=== PATIENT | female | born 1990 | race African-American/Black ===

== ENCOUNTER 2016-05-25 08:57 | Emergency (ER) | payer OTHER ==
[2016-05-25 09:10] VITALS: BP 123/64
== END 2016-05-25 15:02 | disposition left against medical advice (07) ==
LOC: ED 08:57
DX: R05 Cough (principal); Z53.21 Procedure and treatment not carried out due to patient leaving prior to being seen by health care provider

== ENCOUNTER 2016-05-25 11:38 | Emergency (ER) | payer OTHER ==
[2016-05-25 12:43] VITALS: BP 127/72
[2016-05-25] MEDS ORDERED: Acetaminophen TAB* 325 MG PO ONE (12:54)
--- NOTE | 2016-05-25 12:54 | UC ---
Throat Pain/Nasal Ruddy HPI - HPI Summary HPI Summary: 2 days of cough, fever, sore throat, body aches - History of Current Complaint Chief Complaint: UCRespiratory Stated Complaint: FLU LIKE SYMPTOMS Time Seen by Provider: 05/25/16 12:45 Hx Obtained From: Patient Hx Last Menstrual Period: 04/17, PT TRYING ?: No Onset/Duration: Sudden Onset, Lasting Days - 2, Still Present Severity: Moderate Pain Intensity: 5 Pain Scale Used: 0-10 Numeric Cough: Nonproductive Associated Signs & Symptoms: Positive: Sinus Discomfort, Nasal Discharge, Fever - Allergies/Home Medications Allergies/Adverse Reactions: Allergies Allergy/AdvReac Type Severity Reaction Status Date / Time Pollen Extract Allergy Intermediate Hives Verified 05/25/16 09:04 Sulfa Antibiotics Allergy Unknown Verified 05/25/16 09:04 Reaction Details Home Medications: Home Medications [id number]-[id number] W/ APAP [Tylenol Cold & Flu Severe 3-35-225-325 mg] 1 tab PO 05/25/16 [History] PMH/Surg Hx/FS Hx/Imm Hx Previously Healthy: No Endocrine History Of: Denies: Diabetes, Thyroid Disease Cardiovascular History Of: Denies: Cardiac Disorders, Hypertension Respiratory History Of: Denies: COPD, Asthma GI/ History Of: Denies: Ulcer Neurological History Of: Reports: Seizures - LAST ONE 2 YEARS AGO - Surgical History Surgical History: Yes Surgery Procedure, Year, and Place[place] 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 Lives: With Family Alcohol Use: None Substance Use Type: None Smoking Status (MU): Former Smoker Type: Cigarettes Amount Used/How Often: 3 cig/day Length of Time of Smoking/Using Tobacco: 6 years Have You Smoked in the Last Year: Yes - past week not smoking Household Exposure Type: Cigarettes Review of Systems Constitutional: Fever, Chills, Fatigue Skin: Negative Eyes: Negative ENT: Sore Throat, Nasal Discharge Respiratory: Cough Cardiovascular: Negative Gastrointestinal: Negative Genitourinary: Negative Motor: Negative Neurovascular: Negative Musculoskeletal: Arthralgia, Myalgia Neurological: Headache Psychological: Negative All Other Systems Reviewed And Are Negative: Yes Physical Exam Triage Information Reviewed: Yes Appearance: Well-Nourished, Ill-Appearing - moderate, Pain Distress - mild Vital Signs: Initial Vital Signs Temp 99.6 F 05/25/16 12:39 Pulse 89 05/25/16 12:39 Resp 18 05/25/16 12:39 BP 127/72 05/25/16 12:39 Pulse Ox 99 05/25/16 12:39 Vital Signs Reviewed: Yes Eye Exam: Normal Eyes: Positive: Conjunctiva Clear ENT Exam: Other ENT: Positive: Hearing grossly normal, Pharynx normal, Nasal congestion, Nasal drainage, TMs normal. Negative: Tonsillar swelling, Tonsillar exudate, Trismus , Muffled/hoarse voice Dental Exam: Normal Neck exam: Normal Neck: Positive: Supple, Nontender, No Lymphadenopathy Respiratory Exam: Normal Respiratory: Positive: Chest non-tender, Lungs clear, Normal breath sounds, No respiratory distress, No accessory muscle use Cardiovascular Exam: Normal Cardiovascular: Positive: RRR, No Murmur, Pulses Normal, Brisk Capillary Refill Musculoskeletal Exam: Normal Musculoskeletal: Positive: Strength Intact, ROM Intact, No Edema Neurological Exam: Normal Neurological: Positive: Alert, Muscle Tone Normal Psychological Exam: Normal Skin Exam: Normal Diagnostics - Laboratory Diagnostic Studies Completed/Ordered: Influenza A (+) RST (-) Throat Pain/Nasal Course/Dx - Course Assessment/Plan: tamiflu, ibuprofen, tylenol, rest, increase fluids, follow with pcp prn - Differential Dx/Diagnosis Differential Diagnosis/HQI/PQRI: Influenza, Laryngitis, Pharyngitis, Sinusitis, URI Provider Diagnoses: Influenza A Discharge - Discharge Plan Condition: Stable Disposition: HOME Prescriptions: Albuterol HFA INHALER* [Ventolin HFA Inhaler*] 2 puff INH Q4H PRN #1 mdi PRN Reason: cough/wheeze Oseltamivir CAP* [Tamiflu CAP*] 75 mg PO BID #10 cap Patient Education Materials: How to Use a Metered-Dose Inhaler (ED), Influenza (ED) Forms: *Work Release Referrals: Nabila Sage MD [Primary Care Provider] - 5 Days
== END 2016-05-25 13:32 | disposition home or self-care (01) ==
LOC: UCEAST 11:38
DX: J09.X2 Influenza due to identified novel influenza A virus with other respiratory manifestations (principal); Z32.02 Encounter for pregnancy test, result negative; Z88.2 Allergy status to sulfonamides; Z87.891 Personal history of nicotine dependence
CPT/HCPCS: 81002; 81025; 87502; 87651; 99212; A9270-GY; G0463

== ENCOUNTER 2016-07-31 16:12 | Emergency (ER) | payer OTHER ==
[2016-07-31 16:58] VITALS: BP 125/67
--- NOTE | 2016-08-02 16:21 | UC ---
Jeni Frazier Michael, scribed for Marsha Ott MD on 07/31/16 at 1728 . - HPI Summary HPI Summary: 25 y/o female comes to [facility] after taking a home test was positive one and a half weeks ago. The pt is A1. She reports that she had had dysuria and increased frequency that started 3 days ago. She also noticed vaginal bleeding described as spotting that occurred today. The pt c/o n/v, HAGER, and intermittent episodes of cramping RLQ pain. The pt smokes 1-2 cigarettes per day. - History of Current Complaint Chief Complaint: UC general Stated Complaint: SPOTTING (PREG) Time Seen by Provider: 07/31/16 17:13 Hx Obtained From: Patient, Medical Records Chief Complaint: Vaginal Bleeding - spotting Onset/Duration: Started Hours Ago Timing: Intermittent Severity: Mild Current Severity: Mild Pain Intensity: 0 - out of 10 pain assessment Character: Cramping Aggravating Factors: Nothing Alleviating Factors: Nothing Associated Signs and Symptoms: Positive: Nausea, Urinary Symptoms - dysuria and frequency, Vaginal Bleeding or Discharge, Vomiting, Other: - HAGER and RLQ pain - Assessment Hx Now: Yes Hx Hysterectomy: No - Allergies/Home Medications Allergies/Adverse Reactions: Allergies Allergy/AdvReac Type Severity Reaction Status Date / Time Pollen Extract Allergy Intermediate Hives Verified 05/25/16 09:04 Sulfa Antibiotics Allergy Unknown Verified 05/25/16 09:04 Reaction Details PMH/Surg Hx/FS Hx/Imm Hx Endocrine/Hematology History: Reports: Hx Anemia - FOR MANY YEARS Denies: Hx Diabetes, Hx Thyroid Disease Cardiovascular History: Denies: Hx Hypertension, Other Cardiovascular Problems/Disorders Respiratory History: Denies: Hx Asthma, Hx Chronic Obstructive Pulmonary Disease (COPD), Other Respiratory Problems/Disorders GI History: Denies: Hx Ulcer, Other GI Disorders Musculoskeletal History: Denies: Other Musculoskeletal History Sensory History: Denies: Hx Contacts or Glasses, Hx Hearing Aid Opthamlomology History: Denies: Hx Contacts or Glasses Neurological History: Reports: Hx Seizures - LAST ONE 2 YEARS AGO - Surgical History Surgery Procedure, Year, and Place: C SECTION, 2012, [facility] [place] Hx Anesthesia Reactions: No Infectious Disease History: No Infectious Disease History: Denies: Hx Clostridium Difficile, Hx Hepatitis, Hx Human Immunodeficiency Virus (HIV), Hx of Known/Suspected MRSA, Hx Shingles, Hx Tuberculosis, Hx Known/ Suspected VRE, Hx Known/Suspected VRSA, History Other Infectious Disease, Traveled Outside the [place] in Last 30 Days - Family History Known Family History: Positive: Diabetes - father Negative: Cardiac Disease, Hypertension - Social History Occupation: Student Lives: With Family Alcohol Use: None Substance Use Type: Reports: Marijuana Smoking Status (MU): Light Every Day Tobacco Smoker Type: Cigarettes Amount Used/How Often: 3 cig/day Length of Time of Smoking/Using Tobacco: 6 years Have You Smoked in the Last Year: Yes - past week not smoking Review of Systems Gastrointestinal: Abdominal Pain, Vomiting, Other - nausea Genitourinary: Dysuria, Frequency, Other - vaginal bleeding Neurological: Headache All Other Systems Reviewed And Are Negative: Yes Physical Exam - Physical Exam Triage Information Reviewed: Yes Vital Signs Reviewed: Yes Appearance: Positive: Well-Nourished Skin: Positive: Other - normal-no visibility of rash Eyes: Positive: Normal ENT: Positive: Normal ENT inspection Neck: Positive: Other: - normal: no adenopathy appreciated Respiratory/Lung Sounds: Positive: Clear to Auscultation, Breath Sounds Present , Other - no dyspnea. no tachypnea. normal respiratory rate. chest non-tender Cardiovascular: Positive: RRR, Murmur - 1 out of 6 systolic murmur Abdomen Description: Positive: Other: - right lower pelvis tender with no rebound and guarding with no focal mass appreciated. Bowel Sounds: Positive: Present Musculoskeletal: Positive: Normal, Strength/ROM Intact Neurological: Positive: Normal - nonfocal. grossly intact. Psychiatric: Positive: Affect/Mood Appropriate - conversing easily Course/Dx - Course Course Of Treatment: Waiting for Urine results. 1809-discussed pt transfer to [facility] [place] with Germaine Martino. Patient offered and encouraged EMS. Patient declines. POC Urine Ketones: Trace High. Positive . Cx sent. - Diagnoses Provider Diagnoses: Vaginal bleeding in Discharge - Discharge Plan Condition: Stable Disposition: AGAINST MEDICAL ADVICE Referrals: Nabila Sage MD [Primary Care Provider] - The documentation as recorded by the Jeni jones Michael accurately reflects the service I personally performed and the decisions made by me, Marsha Ott MD.
== END 2016-07-31 18:10 | disposition left against medical advice (07) ==
LOC: UCEAST 16:12
DX: O20.9 Hemorrhage in early pregnancy, unspecified (principal); D64.9 Anemia, unspecified; R56.9 Unspecified convulsions; F12.90 Cannabis use, unspecified, uncomplicated; F17.210 Nicotine dependence, cigarettes, uncomplicated; Z88.2 Allergy status to sulfonamides; Z3A.00 Weeks of gestation of pregnancy not specified
CPT/HCPCS: 81003; 84702; 87086; 99212; G0463

== ENCOUNTER 2016-07-31 19:23 | Emergency (ER) | payer OTHER ==
[2016-07-31 19:35] VITALS: BP 112/79
--- NOTE | 2016-07-31 22:02 | RAD ---
HISTORY: Vaginal bleeding, gestational age by dates is unknown COMPARISONS: None relevant TECHNIQUE: Multiple transverse and longitudinal ultrasound images were obtained of the pelvis using grayscale and color Doppler imaging using the endovaginal transducer. FINDINGS: UTERUS: The uterus is normal in shape, size, contour, and echotexture. GESTATION: A gestational sac is identified without pole.. The mean sac diameter measures 0.55 cm for a gestational age of 5 weeks and 7 days. The DONYA is April 01, 2017. cardiac motion is not detected. Gross movement is not identified. A yolk sac is identified. The amniotic fluid is qualitatively normal. There are no retroplacental fluid collections. CUL-DE-SAC: There is no free fluid within the cul-de-sac. RIGHT OVARY: The right ovary measures 3.7 x 1.9 x 2.2 cm. LEFT OVARY: The left ovary measures 3.3 x 2.5 x 3.8 cm. BLADDER: The bladder is not well visualized. IMPRESSION: SINGLE LIVE INTRAUTERINE GESTATION AT 5 WEEKS AND 7 DAYS BY MEAN SAC DIAMETER.
--- NOTE | 2016-08-01 07:16 | ED ---
- HPI Summary HPI Summary: Patient , 5 weeks confirmed by 3 urine preg tests presents to ED after vaginal spotting this morning. She was seen at who sent her here for an US. She denies current bleeding. Previous miscarriage history causes her to be obviously nervous about bleeding and would like assurance. She is not experiencing any pain. Denies health problems and takes no medications. She is not established with an OBGYN yet. Denies other vaginal discharge, urinary sxs, back pain, HAGER, neck pain or fever. - History of Current Complaint Chief Complaint: EDVaginalBleeding Stated Complaint: VAG BLEEDING-EAST XFER Time Seen by Provider: 07/31/16 20:33 Hx Obtained From: Patient Chief Complaint: Concern for Embryonic Dem, Concern for Demise, Vaginal Bleeding Onset/Duration: Started Hours Ago Timing: Constant Severity: Mild Current Severity: None Pain Intensity: 0 Associated Signs and Symptoms: Positive: Negative, Vaginal Bleeding or Discharge - Assessment Hx Now: Yes History of Ectopic : No Hx Pelvic Inflammatory Disease: No Vaginal Bleeding Amount: Spotting Contraction Intensity: No Contractions Contraction Pattern: No Contractions Hx Hysterectomy: No History of STI/STD: No - Risk Factors Ectopic Risk Factor: Negative Ovarian Torsion Risk Factor: Reproductive Age - Allergies/Home Medications Allergies/Adverse Reactions: Allergies Allergy/AdvReac Type Severity Reaction Status Date / Time Pollen Extract Allergy Intermediate Hives Verified 05/25/16 09:04 Sulfa Antibiotics Allergy Unknown Verified 05/25/16 09:04 Reaction Details PMH/Surg Hx/FS Hx/Imm Hx Previously Healthy: Yes Endocrine/Hematology History: Reports: Hx Anemia - FOR MANY YEARS Denies: Hx Diabetes, Hx Thyroid Disease Cardiovascular History: Denies: Hx Hypertension, Other Cardiovascular Problems/Disorders Respiratory History: Denies: Hx Asthma, Hx Chronic Obstructive Pulmonary Disease (COPD), Other Respiratory Problems/Disorders GI History: Denies: Hx Ulcer, Other GI Disorders Musculoskeletal History: Denies: Other Musculoskeletal History Sensory History: Denies: Hx Contacts or Glasses, Hx Hearing Aid Opthamlomology History: Denies: Hx Contacts or Glasses Neurological History: Reports: Hx Seizures - LAST ONE 2 YEARS AGO - Surgical History Surgery Procedure, Year, and Place: C SECTION, 2012, [facility] – [place]; D[place]C Hx Anesthesia Reactions: No Infectious Disease History: No Infectious Disease History: Denies: Hx Clostridium Difficile, Hx Hepatitis, Hx Human Immunodeficiency Virus (HIV), Hx of Known/Suspected MRSA, Hx Shingles, Hx Tuberculosis, Hx Known/ Suspected VRE, Hx Known/Suspected VRSA, History Other Infectious Disease, Traveled Outside the [place] in Last 30 Days - Family History Known Family History: Positive: None, Diabetes - father Negative: Cardiac Disease, Hypertension - Social History Occupation: Unemployed Lives: With Family Alcohol Use: None Hx Substance Use: Yes Substance Use Type: Reports: Marijuana Hx Tobacco Use: Yes Smoking Status (MU): Light Every Day Tobacco Smoker Type: Cigarettes Amount Used/How Often: 3 cig/day Length of Time of Smoking/Using Tobacco: 6 years Have You Smoked in the Last Year: Yes - past week not smoking Review of Systems Constitutional: Negative Cardiovascular: Negative Respiratory: Negative Gastrointestinal: Negative Positive: no symptoms reported, see HPI Musculoskeletal: Negative Neurological: Negative Psychological: Normal All Other Systems Reviewed And Are Negative: Yes Physical Exam - Physical Exam Triage Information Reviewed: Yes Vital Signs Reviewed: Yes Appearance: Positive: Well-Appearing, Well-Nourished Skin: Positive: Warm, Skin Color Reflects Adequate Perfusion Eyes: Positive: ALISON, Conjunctiva Clear Neck: Positive: Supple, No Lymphadenopathy Respiratory/Lung Sounds: Positive: Clear to Auscultation, Breath Sounds Present Cardiovascular: Positive: Normal, RRR, Pulses are Symmetrical in both Upper and Lower Extremities Abdomen Description: Positive: Nontender, Soft Musculoskeletal: Positive: Normal, Strength/ROM Intact Neurological: Positive: Normal, Sensory/Motor Intact, Speech Normal Psychiatric: Positive: Normal Diagnostics - Vital Signs Vital Signs Temp Pulse Resp BP Pulse Ox 07/31/16 19:31 98.2 F 88 15 112/79 100 - Laboratory Lab Statement: Any lab studies that have been ordered have been reviewed, and results considered in the medical decision making process. Course/Dx - Course Course Of Treatment: Transvaginal US showed IUP at 6 weeks. Patient disharged home with reassurance and follow up with OB clinic next week. Ok for discharge. - Differential Diagnosis/HQI/PQRI: Incomplete , Missed , Spontaneous , Threatened , Vaginal Bleeding - Diagnoses Provider Diagnoses: Vaginal bleeding in Discharge - Discharge Plan Condition: Stable Disposition: HOME Patient Education Materials: First Trimester Vaginal Bleed (ED), First Trimester (ED) Referrals: Nabila Sage MD [Primary Care Provider] - Additional Instructions: Follow up with OBGYN You are 5 weeks and 7 days today. If bleeding through a pad every hours, come back to ED.
== END 2016-07-31 22:30 | disposition home or self-care (01) ==
LOC: ED 19:23
DX: O46.91 Antepartum hemorrhage, unspecified, first trimester (principal); Z3A.01 Less than 8 weeks gestation of pregnancy
CPT/HCPCS: 76817; 99282

== ENCOUNTER 2017-03-26 07:45 | Inpatient (IN) | payer OTHER ==
[~2017-03-26 07:45] MED LIST: Sodium Citrate/Citric Acid* 15 ML UDC ONE; Sodium Citrate/Citric Acid* 15 ML UDC PO ONE; ceFOXitin 2 GM IVPREMIX* 2 GM/50 ML BAG ONE
[2017-03-26] MEDS ORDERED: Buffered Lidocaine 0.9% SYRIN* 5 ML/SYR SYRINGE INTRADERM ONE (07:50)
[2017-03-26] MEDS ORDERED: Bupivacaine 0.5% SDV PF* 30 ML VIAL ONE (09:23)
[2017-03-26] MEDS ORDERED: OXYTOCIN* 10 UNITS/ML 1 ML VIAL ONE (09:23)
[2017-03-26] MEDS ORDERED: Morphine PF AMP (0.5MG/ML)* 5 MG/10 ML AMP ONE ×2 (09:36)
[2017-03-26] MEDS ORDERED: Dibucaine 1% 28.35 GM TUBE PR PRN (09:36)
[2017-03-26] MEDS ORDERED: Witch Hazel PAD* JAR TOPICAL PRN (09:36)
[2017-03-26] MEDS: Ketorolac INJ* 30 MG/ML 1 ML VIAL IV SCH ×3 (10:30→23:31)
[2017-03-26] MEDS ORDERED: fentaNYL* 50 MCG/ML 2 ML VIAL (100 MCG VIAL) IV PRN (10:32)
[2017-03-26] MEDS ORDERED: PROCHLORPERAZINE INJ 5 MG/ML 2 ML VIAL IV PRN (10:33)
[2017-03-26] MEDS ORDERED: Naloxone* 0.4 MG/ML 1 ML VIAL IV PRN (10:33)
[2017-03-26] MEDS ORDERED: Nalbuphine* 20 MG/ML 1 ML VIAL IV PRN ×2 (10:33)
[2017-03-26] MEDS ORDERED: Scopolamine PATCH Remove* 1 NOTE MISC PATCH OFF PRN (10:33)
[2017-03-26] MEDS ORDERED: DiMENhydriNATE IV* 50 MG/ML VIAL IV PUSH PRN (10:33)
[2017-03-26] MEDS ORDERED: HYDROcodone/ACETAMIN 5-325 MG* 1 TAB PO PRN (10:33)
[2017-03-26] MEDS ORDERED: diPHENhydraMINE IV* 50 MG/ML 1 ml VIAL (BENADRYL) IV PRN (10:33)
[2017-03-26] MEDS ORDERED: Ondansetron INJ* 2 MG/ML VIAL IV PRN (10:33)
[2017-03-26] MEDS ORDERED: Scopolamine 1.5 mg* PATCH TRANSDERM PRN (10:33)
[2017-03-26] MEDS ORDERED: Ketorolac INJ* 30 MG/ML 1 ML VIAL ONE (10:40)
[2017-03-26] MEDS: Acetaminophen TAB* 325 MG PO SCH ×4 (11:18→23:30)
[2017-03-26] MEDS: Simethicone TAB* 80 MG TAB.CHEW PO SCH ×3 (13:45→20:08)
--- NOTE | 2017-03-26 13:47 | OP ---
DATE OF OPERATION: 03/26/17 - ROOM #[id number] DATE OF : 1990 SURGEON: Umu Williamson MD MUSIC PUBLISHER: Linwood Long CNM. ANESTHESIOLOGIST: Dr. Mckinney. ANESTHESIA: Spinal. PRE-OP DIAGNOSIS: 39 plus 1 week gestation with history of previous . POST-OP DIAGNOSIS: 39 plus 1 week gestation with history of previous . OPERATIVE PROCEDURE: Repeat low transverse section. ESTIMATED BLOOD LOSS: 700 cc. URINE OUTPUT: 300 cc. IV FLUIDS: 2300 cc lactated Ringers. MATERIAL TO LAB: Cord blood. INDICATIONS: This patient was a 26-year-old 3 para 1 who presented today for a 39 plus 1 week gestation for her scheduled repeat section. She declined a trial of labor. She was extensively counseled and consent was signed. FINDINGS: Normal appearing uterus, fallopian tubes and ovaries. Modest amount of adhesions, especially between the skin and fascia. Delivery is productive of a 6 pound 10 ounce male infant with Apgars of 9 and 9. Time of delivery was 1020. COMPLICATIONS: None. DESCRIPTION OF PROCEDURE: The risks, benefits, and alternatives were described to the patient, and informed consent was obtained. The patient was taken to the operating room with IV running, where spinal anesthesia was induced and found to be adequate. The patient was prepped and draped in normal sterile fashion in the dorsal supine position with a leftward tilt. A Pfannenstiel skin incision was made with a scalpel through the patient's previous incision. This was carried down to the underlying fascia using the scalpel. The fascia was scored in the midline, and the incision was extended using Herbert scissors. The fascia was dissected off the underlying rectus muscles using blunt and sharp dissection. The rectus muscles were in the midline using dissection with a Neva clamp. The peritoneum was then entered bluntly. A bladder blade was placed. A bladder flap was created sharply using Metzenbaum scissors. A low transverse uterine incision was then made with the scalpel. This was carried down to the amniotic membranes. The membranes were then ruptured, productive of clear fluid. The uterine incision was extended using blunt traction. The head was elevated to the level of the incision, and, with fundal pressure, the head delivered without difficulty. The shoulders then were also both delivered and the body followed. The had excellent tone and cried immediately on delivery. The cord was doubly clamped and cut. The infant was then handed to the awaiting manufacturing teacher. Cord blood was collected. The placenta was delivered with manual extraction. The uterus was then exteriorized and cleared of all clots and debris. The uterine incision was then reapproximated using 0 Polysorb in a running-locked fashion. A second layer of imbricating 0 Polysorb sutures was then also placed for good hemostasis. The posterior cul-de-sac was irrigated with saline. The uterus was then returned to the abdomen. The incision was reinspected and still noted to be hemostatic. The peritoneum was closed with 2-0 chromic in a running fashion. The fascia was closed with 0 Polysorb in a running fashion. The subcutaneous tissues were copiously irrigated and made hemostatic using the Bovie. The subcutaneous tissues were then reapproximated using 2-0 chromic in interrupted sutures. The skin was then closed with . A sterile bandage was then placed over the incision. The patient tolerated the procedure well. Sponge, lap, and needle counts were correct x 2. [id number]/[facility] #: [id number] [facility]OLDW[facility] SPECIALTY HOSPITALDianne
[2017-03-26] MEDS: Docusate CAP* 100 MG PO SCH ×2 (14:27→20:08)
[2017-03-27] MEDS: Ketorolac INJ* 30 MG/ML 1 ML VIAL IV SCH (04:28)
[2017-03-27 08:38] LABS: Hematocrit 31 % (35-47); Hemoglobin 10.8 g/dl (12.0-16.0); Mean Corpuscular HGB Conc 35 g/dl (31-36); Mean Corpuscular Hemoglobin 31 pg (27-31); Mean Corpuscular Volume 90 fL (80-97); Mean Platelet Volume 8 um3 (7.4-10.4); Red Blood Count 3.49 10^6/ul (4.0-5.4); Red Cell Distribution Width 14 % (10.5-15); White Blood Count 12.4 10^3/ul (3.5-10.8)
[2017-03-27] MEDS: Ferrous Gluconate TAB* 324 MG TAB PO SCH (09:00)
[2017-03-27] MEDS: oxyCODONE/Acetamin 5/325 MG* TAB PO PRN ×4 (09:06→23:26)
[2017-03-27] MEDS: Simethicone TAB* 80 MG TAB.CHEW PO SCH ×3 (09:07→20:25)
[2017-03-27] MEDS: Docusate CAP* 100 MG PO SCH ×3 (09:07→20:25)
[2017-03-27] MEDS: Ibuprofen TAB* 600 MG PO SCH ×2 (13:13→19:10)
[2017-03-28] MEDS: Ibuprofen TAB* 600 MG PO SCH ×6 (01:18→23:21)
[2017-03-28] MEDS: oxyCODONE/Acetamin 5/325 MG* TAB PO PRN ×5 (03:37→21:13)
[2017-03-28] MEDS: Ferrous Gluconate TAB* 324 MG TAB PO SCH (05:15)
[2017-03-28] MEDS: Docusate CAP* 100 MG PO SCH ×3 (08:19→21:14)
[2017-03-28] MEDS: Simethicone TAB* 80 MG TAB.CHEW PO SCH ×4 (08:20→21:14)
[2017-03-29] MEDS: oxyCODONE/Acetamin 5/325 MG* TAB PO PRN ×3 (03:59→12:39)
[2017-03-29] MEDS: Ibuprofen TAB* 600 MG PO SCH ×2 (06:17→12:38)
[2017-03-29 08:12] VITALS: BP 115/77
[2017-03-29] MEDS: Simethicone TAB* 80 MG TAB.CHEW PO SCH ×2 (08:13→12:38)
[2017-03-29] MEDS: Docusate CAP* 100 MG PO SCH (08:13)
== END 2017-03-29 13:25 | disposition home or self-care (01) | DRG 540 ==
LOC: MCHOB 07:45
PROVIDERS: ADMIT Obstetrics & Gynecology; ATTEND Obstetrics & Gynecology
PROC: 10D00Z1 Extraction of Products of Conception, Low, Open Approach (ICD-10-PCS; principal; 2017-03-26 09:00)
DX: O34.211 Maternal care for low transverse scar from previous cesarean delivery (principal); F12.21 Cannabis dependence, in remission; O99.824 Streptococcus B carrier state complicating childbirth; F14.21 Cocaine dependence, in remission; Z87.891 Personal history of nicotine dependence; Z3A.39 39 weeks gestation of pregnancy; Z37.0 Single live birth
CPT/HCPCS: 36415; 85025; A9270-GY; J0694; J1885; J2405; J2590

== ENCOUNTER 2018-01-25 14:25 | Emergency (ER) | payer SELFPAY ==
[2018-01-25] MEDS ORDERED: LORazepam TAB(*) 1 MG PO ONE (14:54)
--- NOTE | 2018-01-25 15:42 | ED ---
Psychiatric Complaint - HPI Summary HPI Summary: LEVEL 5 CAVEAT: HPI LIMITED DUE TO PT CONDITION, UNCOOPERATIVE At 1610: Pt is soundly asleep. At 1710: ED provider is at bedside. Pt is a 27 y/o F presenting to ED for depression and uncontrollable crying onset [employer]. Pt denies taking recreational drugs. Pt is not answering questions regarding what happened today. She is nodding yes that she is thinking about hurting herself. PMHx: Sz, drug abuse. - History Of Current Complaint Chief Complaint: EDMentalHealth Time Seen by Provider: 01/25/18 14:51 Hx Obtained From: Patient Hx Last Menstrual Period: June 12 Onset/Duration: Still Present Timing: Constant - Allergies/Home Medications Allergies/Adverse Reactions: Allergies Allergy/AdvReac Type Severity Reaction Status Date / Time pollen extracts Allergy Hives Verified 01/25/18 14:42 Sulfa (Sulfonamide Allergy Unknown Verified 01/25/18 14:42 Antibiotics) Reaction Details PMH/Surg Hx/FS Hx/Imm Hx Previously Healthy: No Endocrine/Hematology History: Reports: Hx Anemia - FOR MANY YEARS Denies: Hx Diabetes, Hx Thyroid Disease Cardiovascular History: Denies: Hx Hypertension, Other Cardiovascular Problems/Disorders Respiratory History: Denies: Hx Asthma, Hx Chronic Obstructive Pulmonary Disease (COPD), Other Respiratory Problems/Disorders GI History: Denies: Hx Ulcer, Other GI Disorders Musculoskeletal History: Denies: Other Musculoskeletal History Sensory History: Denies: Hx Contacts or Glasses, Hx Hearing Aid Opthamlomology History: Denies: Hx Contacts or Glasses Neurological History: Reports: Hx Seizures - LAST ONE 2 YEARS AGO - Surgical History Surgery Procedure, Year, and Place: C SECTION, 2012, [facility] – [place]; D&C Hx Anesthesia Reactions: No Infectious Disease History: No Infectious Disease History: Denies: Hx Clostridium Difficile, Hx Hepatitis, Hx Human Immunodeficiency Virus (HIV), Hx of Known/Suspected MRSA, Hx Shingles, Hx Tuberculosis, Hx Known/ Suspected VRE, Hx Known/Suspected VRSA, History Other Infectious Disease, Traveled Outside the [place] in Last 30 Days - Family History Known Family History: Positive: Diabetes - father Negative: Cardiac Disease, Hypertension - Social History Occupation: Unemployed Lives: With Family Alcohol Use: None Hx Substance Use: Yes Substance Use Type: Reports: None Substance Use Comment - Amount & Last Used: history of marijuana and cocaine, went through [facility], none since 11/10 Hx Tobacco Use: Yes Smoking Status (MU): Light Every Day Tobacco Smoker Type: Cigarettes Amount Used/How Often: 1cig/day Length of Time of Smoking/Using Tobacco: 6 years Have You Smoked in the Last Year: Yes - past week not smoking Review of Systems - ROS Summary Review of Systems Summary: LEVEL 5 CAVEAT: ROS LIMITED DUE TO PT CONDITION, UNCOOPERATIVE Psychological: Other - pos: crying, SI Positive: Depressed All Other Systems Reviewed And Are Negative: No Physical Exam - Summary Physical Exam Summary: General: Well appearing, no distress Cardiovascular: Skin is well perfused Pulmonary: No respiratory distress, no tachypnea Abdomen: Non-distended Skin: Warm, pink, dry Psych: Uncontrollable crying. Neuro: A&Ox3 Triage Information Reviewed: Yes Vital Signs On Initial Exam: Initial Vitals Temp Pulse Resp BP Pulse Ox 99.6 F 115 30 122/99 97 01/25/18 14:43 01/25/18 14:43 01/25/18 14:43 01/25/18 14:43 01/25/18 14:43 Vital Signs Reviewed: Yes Diagnostics - Vital Signs Vital Signs Temp Pulse Resp BP Pulse Ox 01/25/18 14:59 36 01/25/18 14:43 99.6 F 115 30 122/99 97 - Laboratory Result Diagrams: 01/25/18 17:32 Lab Statement: Any lab studies that have been ordered have been reviewed, and results considered in the medical decision making process. Course/Dx - Course Course Of Treatment: Pt is medically cleared for MHE at 1728. Pt will be signed out to Dr. Turner at shift change, pending MHE. - Differential Dx/Clinical Impression Provider Diagnosis: Suicidal ideation Discharge - Sign-Out/Discharge Documenting (check all that apply): Sign-Out Patient Signing out patient TO: Ivett Turner - pending MHE - Discharge Plan Referrals: No Primary Care Phys,NOPCP [Primary Care Provider] - - Attestation Statements Document Initiated by Scribe: Yes Documenting Scribe: Julissa Rose Provider For Whom Scribe is Documenting (Include Credential): Dr. Maycol Pavon MD Scribe Attestation: Julissa Frazier scribed for Dr. Maycol Pavon MD on 01/25/18 at 1756.
[2018-01-25 17:41] LABS: ABS Basophils 0 10^3/ul (0-0.2); ABS Eosinophils 0 10^3/ul (0-0.6); ABS Lymphocytes 2.8 10^3/ul (1.0-4.8); ABS Monocytes 0.5 10^3/ul (0-0.8); ABS Neutrophils 5.4 10^3/ul (1.5-7.7); ABS Nucleated RBC 0 10^3/ul; Eosinophil % 0.5 % (0-6); Hematocrit 36 % (35-47); Hemoglobin 12.5 g/dl (12.0-16.0); Lymphocyte % 31.9 % (25-47); Mean Corpuscular HGB Conc 35 g/dl (31-36); Mean Corpuscular Hemoglobin 31 pg (27-31); Mean Corpuscular Volume 89 fL (80-97); Mean Platelet Volume 6.5 um3 (7.4-10.4); Nucleated Red Blood Cells % 0.1; Platelet Count 338 10^3/ul (150-450); Red Blood Count 4.07 10^6/ul (4.00-5.40); Red Cell Distribution Width 13 % (10.5-15); White Blood Count 8.8 10^3/ul (3.5-10.8)
[2018-01-25 18:00] LABS: EGFR Non-African American 74.6 (>60)
--- NOTE | 2018-01-25 20:45 | ED ---
Progress - Progress Note Progress Note: Patient was received as a sign out from Dr. Pavon to Dr. Turner at shift change while patient was waiting for [id number] -- Dr. Arrington reviewed the patient's case. She will be discharged to home with referrals to substance abuse help programs. Dr. Turner is agreeable with this plan. Dx of substance induced mood disorder. - Consult/PCP Time Called: 19:00 Course/Dx - Course Course Of Treatment: Patient was received as a sign out from Dr. Pavon to Dr. Turner at shift change while patient was waiting for [id number] -- Dr. Arrington reviewed the patient's case. Patient will be discharged to home with referrals to substance abuse help programs. Dr. Turner is agreeable with this plan. Dx of substance induced mood disorder. - Diagnoses Provider Diagnoses: Substance induced mood disorder - Provider Notifications Discussed Care Of Patient With: Jean Pierre Arrington Time Discussed With Above Provider: 20:30 Instructed by Provider To: Other 2029 -- Dr. Arrington reviewed the patient's case. She will be discharged to home with referrals to substance abuse help programs. Dr. Turner is agreeable with this plan. Discharge - Sign-Out/Discharge Documenting (check all that apply): Patient Departure - discharge - Discharge Plan Condition: Stable Disposition: HOME Patient Education Materials: Mood Disorders (ED), Polysubstance Abuse (ED) Referrals: [facility] [Outside] [facility] [Outside] [facility] [Outside] No Primary Care Phys,[facility] [Primary Care Provider] - - Attestation Statements Document Initiated by Scribe: Yes Documenting Scribe: Herson Mcintosh Provider For Whom Vicky is Documenting (Include Credential): Ivett Turner MD Scribe Attestation: Herson Frazier, scribed for Ivett Turner MD on 01/25/18 at 2043.
[2018-01-25 21:40] VITALS: BP 104/55
== END 2018-01-25 21:39 | disposition home or self-care (01) ==
LOC: ED 14:25
DX: R45.851 Suicidal ideations (principal); F17.210 Nicotine dependence, cigarettes, uncomplicated; Z88.2 Allergy status to sulfonamides
CPT/HCPCS: 36415; 80053; 80320; 80329; 84443; 85025; 99285; A9270-GY; G0480

== ENCOUNTER 2021-07-02 05:49 | Inpatient (IN) ==
[2021-07-02] MEDS ORDERED: Buffered Lidocaine 1% SYRIN 1 ml INTRADERM ONE (06:00)
[2021-07-02] MEDS ORDERED: Famotidine IV 10 MG/ML 2 ml VIAL (20 mg) IV ONE (06:00)
[2021-07-02] MEDS ORDERED: Lactated Ringers 1000 ml BAG 1,000 ML IV SCH ×2 (06:00→10:00)
[2021-07-02 06:45] LABS: ABS Eosinophils 0.1 10^3/ul (0-0.6); ABS Lymphocytes 2.4 10^3/ul (1.0-4.8); ABS Neutrophils 7.3 10^3/ul (1.5-7.7); Eosinophil % 1.3 %; Hematocrit 34 % (35-47); Hemoglobin 11.8 g/dL (12.0-16.0); Lymphocyte % 21.8 %; Mean Corpuscular HGB Conc 35 g/dL (31-36); Mean Corpuscular Hemoglobin 31 pg (27-31); Mean Corpuscular Volume 88 fL (80-97); Mean Platelet Volume 7.4 fL (7.4-10.4); Platelet Count 276 10^3/uL (150-450); Red Blood Count 3.83 10^6 /uL (3.70-4.87); Red Cell Distribution Width 14 % (10-15); White Blood Count 10.9 10^3/uL (3.5-10.8)
[2021-07-02] MEDS ORDERED: ceFOXitin 2 GM PREMIX 50 ML IVPB ONE (07:00)
[2021-07-02] MEDS ORDERED: Oxytocin 10 UNITS/ML 1 ML VIAL ONE (07:47)
[2021-07-02] MEDS ORDERED: Bupivacaine 0.5% SDV PF 30ML VIAL ONE (07:47)
[2021-07-02] MEDS ORDERED: Morphine PF AMP (0.5MG/ML) 5 MG/10 ML AMP ONE (07:48)
[2021-07-02] MEDS ORDERED: Phenylephrine 40 mcg/mL 10mL (400mcg) SYRINGE ONE (08:10)
[2021-07-02] MEDS ORDERED: EPHEDrine (Pressors) 50 MG/ML VIAL ONE (08:22)
[2021-07-02] MEDS ORDERED: Sodium Chloride 0.9% 10 ML ONE (08:23)
[2021-07-02] MEDS ORDERED: Ondansetron 4 mg VIAL 2 MG/ML 2 ml VIAL ONE (08:38)
[2021-07-02] MEDS ORDERED: Dexamethasone IV 4 MG/ML VIAL 1 ml VIAL ONE (08:38)
[2021-07-02] MEDS ORDERED: Acetaminophen IV 1 GM/100ML 100 ML IV ONE (08:39)
[2021-07-02] MEDS ORDERED: Ondansetron 4 mg VIAL 2 MG/ML 2 ml VIAL IV PRN (08:48)
[2021-07-02] MEDS ORDERED: DiMENhydriNATE IV 50 mg/ml 1 ml VIAL IV PUSH PRN (08:48)
[2021-07-02] MEDS ORDERED: Naloxone 0.4 mg VIAL 0.4 mg/ml 1 ml VIAL IV PRN ×2 (08:48→08:50)
[2021-07-02] MEDS ORDERED: fentaNYL 100 mcg/2 ml 50 MCG/ML VIAL IV PRN (08:50)
[2021-07-02 08:54] LABS: Urine Appearance Clear; Urine Bilirubin Negative (Negative); Urine Blood Negative (Negative); Urine Color Straw; Urine Glucose Negative (Negative); Urine Ketones Negative (Negative); Urine Nitrite Negative (Negative); Urine Protein Negative (Negative); Urine Specific Gravity 1.003 (1.002-1.030); Urine Urobilinogen Negative (Negative)
[2021-07-02 09:12] LABS: Urine Benzodiazepine Screen None Detected (None Detect); Urine Cannabinoids Screen None Detected (None Detect); Urine Opiates Screen None Detected (None Detect)
[2021-07-02] MEDS ORDERED: Witch Hazel PAD JAR TOPICAL PRN (09:41)
[2021-07-02] MEDS ORDERED: Glycerin ADULT 2.4 gm SUPP PR PRN (09:41)
[2021-07-02] MEDS ORDERED: Dibucaine 1% OINT 28.35 GM TUBE PR PRN (09:41)
[2021-07-02] MEDS ORDERED: Oxytocin in LR 20 UNITS/1,000 ML BAG IVPB SCH (10:00)
[2021-07-02] MEDS ORDERED: Flu vaccine *QUAD* 2021-22* 0.5 ML SYRINGE IM ONE (12:00)
[2021-07-02] MEDS: oxyCODONE/Acetamin 5/325 mg TAB PO PRN ×4 (12:37→23:50)
[2021-07-02] MEDS ORDERED: Nalbuphine 10 MG/ML 1 ML VIAL IV PRN (14:28)
[2021-07-03 05:45] LABS: Hematocrit 31 % (35-47); Hemoglobin 10.3 g/dL (12.0-16.0); Mean Corpuscular HGB Conc 34 g/dL (31-36); Mean Corpuscular Hemoglobin 30 pg (27-31); Mean Corpuscular Volume 88 fL (80-97); Mean Platelet Volume 7.3 fL (7.4-10.4); Platelet Count 251 10^3/uL (150-450); Red Blood Count 3.46 10^6 /uL (3.70-4.87); Red Cell Distribution Width 14 % (10-15); White Blood Count 20.1 10^3/uL (3.5-10.8)
[2021-07-03 05:47] LABS: ABS Lymphocytes 2.4 10^3/ul (1.0-4.8); ABS Monocytes 1.6 10^3/ul (0-0.8); ABS Neutrophils 16.1 10^3/ul (1.5-7.7); Eosinophil % 0.1 %; Lymphocyte % 11.9 %
[2021-07-03] MEDS: Nicotine PATCH 14 MG/24 HR PATCH TRANSDERM SCH (10:05)
[2021-07-04] MEDS: Nicotine PATCH 14 MG/24 HR PATCH TRANSDERM SCH (09:24)
[2021-07-05 08:24] VITALS: BP 124/80
[2021-07-05] MEDS: Nicotine PATCH 14 MG/24 HR PATCH TRANSDERM SCH (08:48)
[2021-07-05] MEDS ORDERED: diPHENhydraMINE 25 mg TAB PO ONE (09:20)
[2021-07-05] MEDS ORDERED: diPHENhydraMINE 25 mg TAB ONE (09:26)
== END 2021-07-05 12:14 | disposition home or self-care (01) | DRG 540 ==
LOC: MCHOB 05:49
PROVIDERS: ADMIT Obstetrics & Gynecology; ATTEND Obstetrics & Gynecology